=== PATIENT | male | born 1950 | race Caucasian/White ===

== ENCOUNTER 2018-01-29 19:06 | Inpatient (IN) | payer BC, MEDICARE ==
[2018-01-29] MEDS ORDERED: IPRATROPIUM/ALBUTEROL 0.5-2.5 MG/3 ML AMPUL NEB ONE ×2 (19:20→19:49)
[2018-01-29] MEDS ORDERED: PREDNISONE 20 MG TABLET PO ONE (19:20)
--- NOTE | 2018-01-29 19:22 | ER Document Report ---
ED Medical Screen (RME) - General Chief Complaint: Shortness Of Breath Stated Complaint: SHORTNESS OF BREATH Time Seen by Provider: 01/29/18 19:13 Notes: RME DISCLOSURE I have seen this patient as part of a Rapid Medical Evaluation and, if applicable, placed any initially appropriate orders. The patient will be seen and fully evaluated, including a full history and physical exam, by a provider ( in Main ED or Fast Track) when a room becomes available. 67-year-old male PMH liver transplant here with complaints of progressively worsening shortness of breath, new nonproductive cough, and chest pain ongoing for the past few days. The shortness of breath is present at baseline but patient states he has been getting worse over the past few days. He denies any fevers or chills. O2 sats in triage or high 70s low 80s. EXAM Mild end expiratory wheezes with mild decreased aeration Tachycardic TRAVEL OUTSIDE OF THE [place] IN LAST 30 DAYS: No - Related Data Allergies/Adverse Reactions: Penicillins Allergy (Verified 01/29/18 19:08)
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
[2018-01-29] MEDS: MAGNESIUM SULFATE/D5W 1 GM/100 ML RTUPB IV SCH ×2 (20:00→20:53)
[2018-01-29 20:11] LABS: MEAN CORPUSCULAR VOLUME 92 fl (80-97)
[2018-01-29 20:13] LABS: HEMATOCRIT 38.7 % (37.9-51.0); MEAN CORPUSCULAR HEMOGLOBIN 30.8 pg (27.0-33.4); MEAN CORPUSCULAR HGB CONC 33.7 g/dL (32.0-36.0); RED BLOOD COUNT 4.23 10^6/uL (4.35-5.55); RED CELL DISTRIBUTION WIDTH 14.9 % (11.5-14.0); WHITE BLOOD COUNT 10.9 10^3/uL (4.0-10.5)
[2018-01-29 20:22] LABS: VENOUS BLOOD BASE EXCESS 0.8 mmol/L; VENOUS BLOOD HCO3 26.3 mmol/L (20-32); VENOUS BLOOD PCO2 44.9 mmHg (35-63); VENOUS BLOOD PH 7.39 (7.30-7.42)
[2018-01-29 20:43] LABS: TROPONIN I 0.045 ng/mL
--- NOTE | 2018-01-29 20:44 | RADIOLOGY REPORT (SQ) ---
EXAM DESCRIPTION: CHEST SINGLE VIEW COMPLETED DATE/TIME: 01/29/2018 8:14 pm REASON FOR STUDY: SOB, hypoxic; eval edema pneumonia COMPARISON: None. EXAM PARAMETERS: NUMBER OF VIEWS: One view. TECHNIQUE: Single frontal radiographic view of the chest acquired. RADIATION DOSE: NA LIMITATIONS: None. FINDINGS: LUNGS AND PLEURA: Diffuse increased interstitial prominence. Confluent alveolar opacities are present in the right costophrenic angle, possible consolidation. No pneumothorax identified. N o significant effusion. Right lateral pleural calcified plaques. MEDIASTINUM AND HILAR STRUCTURES: Age-appropriate. HEART AND VASCULAR STRUCTURES: Cardiomegaly. Increased vascularity. BONES: No acute findings. HARDWARE: Cardiac pacer. OTHER: No other significant finding. IMPRESSION: Diffuse increased interstitial prominence and increased pulmonary vascularity, probable pulmonary edema. Confluent alveolar opacities are present in the right costophrenic angle, possible focal consolidation. No pneumothorax identified. No significant effusion. Right lateral pleural ca lcified plaques. TECHNICAL DOCUMENTATION: JOB ID: [id number] [id number] 2010 [employer]- All Rights Reserved Reading location - IP/workstation name: [email or web address]
[2018-01-29 20:46] LABS: ABSOLUTE LYMPHOCYTES# (MANUAL) 2.6 10^3/uL (0.5-4.7); ABSOLUTE MONOCYTES # (MANUAL) 0.8 10^3/uL (0.1-1.4); ABSOLUTE NEUTROPHILS# (MANUAL) 7.3 10^3/uL (1.7-8.2); BAND NEUTROPHILS % (MANUAL) 1 % (3-5); BASOPHILS % (MANUAL) 0 % (0-2); EOSINOPHILS % (MANUAL) 2 % (0-6); LYMPHOCYTES % (MANUAL) 16 % (13-45); MONOCYTES % (MANUAL) 7 % (3-13); SEGMENTED NEUTROPHILS % (MAN) 66 % (42-78); TOTAL CELLS COUNTED 100
[2018-01-29 20:49] LABS: ANISOCYTOSIS SLIGHT; PLATELET CLUMPS PRESENT; PLATELET COMMENT ADEQUATE; PLATELET COUNT 230 10^3/uL (150-450); POIKILOCYTOSIS SLIGHT; POLYCHROMASIA SLIGHT; SCHISTOCYTES SLIGHT
[2018-01-29 20:55] LABS: ALANINE AMINOTRANSFERASE 45 U/L (21-72); ALBUMIN 4.3 g/dL (3.5-5.0); ALKALINE PHOSPHATASE 105 U/L (38-126); ANION GAP 12 (5-19); ASPARTATE AMINO TRANSFERASE 28 U/L (17-59); BILIRUBIN,DIRECT 0.4 mg/dL (0.0-0.4); BILIRUBIN,TOTAL 1.1 mg/dL (0.2-1.3); BLOOD UREA NITROGEN 31 mg/dL (7-20); CALCIUM 9.9 mg/dL (8.4-10.2); CARBON DIOXIDE 27 mmol/L (22-30); CHLORIDE 101 mmol/L (98-107); GLUCOSE 339 mg/dL (75-110); TOTAL PROTEIN 7.9 g/dL (6.3-8.2)
[2018-01-29] MEDS ORDERED: FUROSEMIDE INJ/PF 40 MG/4 ML SDV IV ONE (21:11)
[2018-01-29] MEDS ORDERED: LEVOFLOXACIN 750 MG/D5W RTU 750 MG/150 ML RTUPB IV ONE (21:11)
--- NOTE | 2018-01-29 21:53 | EKG REPORT ---
SEVERITY:- ABNORMAL ECG - ATRIAL-SENSED VENTRICULAR-PACED COMPLEXES PROBABLE LEFT ATRIAL ABNORMALITY NONSPECIFIC ST DEPRESSION : Confirmed by: Joann Levin 29-Jan-2018 21:53:02
--- NOTE | 2018-01-29 22:37 | PDOC H&P ---
History of Present Illness Admission Date/PCP: [facility] [address] History of Present Illness: THUAN WANG is a 67 year old male patient with past medical history of congestive heart failure, CAD status post stent placement and pacemaker placement, cirrhosis of the liver status post liver transplant about 17 years ago, aortic regurgitation and obstructive sleep apnea on CPAP at night. Patient reports this that he has been on his baseline state of health up until several days when he started to have shortness of breath which is precipitated by mild exertion and it is getting worse gradually. On arrival at ER he was found to have hypoxemia with O2 saturation of 84% on room air. After he started on supplemental oxygen and 20 mg of IV Lasix he his shortness of breath is relatively subsided. His initial workup shows creatinine of 1.73, BNP of 2400 and his chest x-ray is positive for pulmonary edema. Patient denies chills , fever, chest pain, palpitation or diaphoresis. He does not have any orthopnea or paroxysmal nocturnal dyspnea. No headache, dizziness, blurry vision or any seizure activity. Past Medical History Cardiac Medical History: Reports: Myocardial Infarction Renal/ Medical History: Reports: Chronic Kidney Disease Past Surgical History Past Surgical History: Reports: Other - Liver transplant Social History Smoking Status: Former Smoker Family History Family History: Hypertension Parental Family History Reviewed: Yes Children Family History Reviewed: No Sibling(s) Family History Reviewed.: Yes Medication/Allergy Allergies/Adverse Reactions: Penicillins Allergy (Verified 01/29/18 19:08) Review of Systems Constitutional: PRESENT: as per HPI Eyes: PRESENT: as per HPI Ears: PRESENT: as per HPI Nose, Mouth, and Throat: PRESENT: as per HPI Cardiovascular: PRESENT: as per HPI Gastrointestinal: PRESENT: as per HPI Integumentary: PRESENT: as per HPI Psychiatric: PRESENT: as per HPI Physical Exam Vital Signs: Temp Pulse Resp BP Pulse Ox 98.8 F 18 116/71 98 01/29/18 19:09 01/29/18 20:01 01/29/18 20:01 01/29/18 20:01 General appearance: PRESENT: other - Moderate distress Head exam: PRESENT: atraumatic, normocephalic Eye exam: PRESENT: conjunctiva pink Neck exam: ABSENT: carotid bruit, JVD, lymphadenopathy, thyromegaly Respiratory exam: PRESENT: decreased breath sounds, wheezes Cardiovascular exam: PRESENT: diastolic murmur - 3/6 diastolic early murmur Results Laboratory Results: 01/29/18 19:51 01/29/18 19:51 01/29/18 01/29/18 01/29/18 19:51 19:51 20:08 WBC 10.9 H RBC 4.23 L Hgb 13.0 L Hct 38.7 MCV 92 MCH 30.8 MCHC 33.7 RDW 14.9 H Plt Count 230 Seg Neutrophils % Not Reportable Lymphocytes % Not Reportable Monocytes % Not Reportable Eosinophils % Not Reportable Basophils % Not Reportable Absolute Neutrophils Not Reportable Absolute Lymphocytes Not Reportable Absolute Monocytes Not Reportable Absolute Eosinophils Not Reportable Absolute Basophils Not Reportable VBG pH 7.39 VBG pCO2 44.9 VBG HCO3 26.3 VBG Base Excess 0.8 Sodium 140.0 Potassium 5.0 Chloride 101 Carbon Dioxide 27 Anion Gap 12 BUN 31 H Creatinine 1.73 H Est GFR ( Amer) 48 L Est GFR (Non-Af Amer) 39 L Glucose 339 H Calcium 9.9 Total Bilirubin 1.1 AST 28 ALT 45 Alkaline Phosphatase 105 Total Protein 7.9 Albumin 4.3 01/29/18 19:51 Troponin I 0.045 NT-Pro-B Natriuret Pep 2420 H Impressions: Chest X-Ray 01/29/18 19:19 IMPRESSION: Diffuse increased interstitial prominence and increased pulmonary vascularity, probable pulmonary edema. Confluent alveolar opacities are present in the right costophrenic angle, possible focal consolidation. No pneumothorax identified. No significant effusion. Right lateral pleural calcified plaques. Assessment & Plan - Diagnosis (1) Acute exacerbation of congestive heart failure Qualifiers: Heart failure type: systolic Qualified Code(s): I50.23 - Acute on chronic systolic (congestive) heart failure Is this a current diagnosis for this admission?: Yes Plan: Patient will be admitted to telemetry with inpatient status He is started on Lasix 40 mg IV twice a day, lisinopril 2.5 mg p.o. daily and carvedilol 6.5 mg twice a day. Bedrest, continuous cardiac rehab nurse, daily weight and strict input output. Echo in the morning (2) Dyspnea Qualifiers: Dyspnea type: dyspnea on exertion Qualified Code(s): R06.09 - Other forms of dyspnea Is this a current diagnosis for this admission?: Yes Plan: Supplemental oxygen (3) Coronary artery disease Qualifiers: Coronary Disease-Associated Artery/Lesion type: [place] artery [place] vs. transplanted heart: [place] heart Associated angina: without angina Qualified Code(s): I25.10 - Atherosclerotic heart disease of [place] coronary artery without angina pectoris Is this a current diagnosis for this admission?: Yes Plan: Home medication - Time Time Spent: 30 to 50 Minutes Within: within 72 hours - Inpatient Certification Medical Necessity: Need Close Monitoring Due to Risk of Patient Decompensation
[2018-01-30] MEDS ORDERED: LEVALBUTEROL HCL NEB 0.63 MG/3 ML AMPUL NEB PRN (01:34)
[2018-01-30] MEDS: HEPARIN SOD (PORCINE) 5,000 UNIT/ML 1 ML SYRINGE SUBCUT SCH ×3 (05:44→22:42)
[2018-01-30 09:06] LABS: ALANINE AMINOTRANSFERASE 44 U/L (21-72); ALBUMIN 4.2 g/dL (3.5-5.0); ALKALINE PHOSPHATASE 102 U/L (38-126); ANION GAP 15 (5-19); ASPARTATE AMINO TRANSFERASE 22 U/L (17-59); BILIRUBIN,DIRECT 0.4 mg/dL (0.0-0.4); BILIRUBIN,TOTAL 1.1 mg/dL (0.2-1.3); BLOOD UREA NITROGEN 31 mg/dL (7-20); CALCIUM 9.4 mg/dL (8.4-10.2); CARBON DIOXIDE 24 mmol/L (22-30); CHLORIDE 96 mmol/L (98-107); POTASSIUM 5.4 mmol/L (3.6-5.0); SODIUM 135.2 mmol/L (137-145); TOTAL PROTEIN 7.6 g/dL (6.3-8.2)
[2018-01-30 09:18] LABS: GLUCOSE 497 mg/dL (75-110)
[2018-01-30] MEDS ORDERED: PREDNISONE 1 MG TABLET PO PRN (09:51)
[2018-01-30] MEDS ORDERED: DEXTROSE 50%-WATER 25 GM/50 ML DISP.SYRIN IV PRN ×2 (09:54)
[2018-01-30] MEDS ORDERED: GLUCAGON,HUMAN RECOMB 1 MG INJ IM PRN (09:54)
[2018-01-30] MEDS ORDERED: DEXTROSE 40% GEL 15 GM TUBE PO PRN ×2 (09:54)
[2018-01-30] MEDS ORDERED: LEVOTHYROXINE SODIUM 0.1 MG TABLET PO ONE (10:30)
[2018-01-30] MEDS: ASPIRIN 325 MG TABLET PO SCH (10:39)
[2018-01-30] MEDS: OMEGA-3 ACID ETHYL ESTERS 1 GM CAPSULE PO SCH ×2 (10:42→17:45)
[2018-01-30] MEDS: PREDNISONE 5 MG TABLET PO SCH (10:42)
[2018-01-30] MEDS: MULTIVITAMIN TABLET PO SCH (10:44)
[2018-01-30] MEDS: FAMOTIDINE 20 MG TABLET PO SCH ×2 (10:44→17:45)
[2018-01-30] MEDS: FUROSEMIDE INJ/PF 40 MG/4 ML SDV IV SCH ×2 (10:56→22:40)
[2018-01-30] MEDS ORDERED: INSULIN GLARGINE,HUM.REC.ANLOG 1,000 UNIT/10 ML UNIT SUBCUT ONE (11:00)
--- NOTE | 2018-01-30 11:01 | PDOC PROGRESS REPORT ---
Subjective Progress Note for:: 01/30/18 Subjective:: THUAN WANG is a 67 year old male patient with past medical history of congestive heart failure, CAD status post stent placement and pacemaker placement, cirrhosis of the liver status post liver transplant about 17 years ago, aortic regurgitation and obstructive sleep apnea on CPAP at night. Patient reports this that he has been on his baseline state of health up until several days when he started to have shortness of breath which is precipitated by mild exertion and it is getting worse gradually. On arrival at ER he was found to have hypoxemia with O2 saturation of 84% on room air. After he started on supplemental oxygen and 20 mg of IV Lasix he his shortness of breath is relatively subsided. His initial workup shows creatinine of 1.73, BNP of 2400 and his chest x-ray is positive for pulmonary edema. Patient denies chills , fever, chest pain, palpitation or diaphoresis. He does not have any orthopnea or paroxysmal nocturnal dyspnea. /6 He feels much better today, but gets short of breath with talking. Reason For Visit: CHF EXACERBATION Physical Exam Vital Signs: Temp Pulse Resp BP Pulse Ox 97.5 F 72 20 111/59 L 96 01/30/18 07:46 01/30/18 07:46 01/30/18 07:46 01/30/18 07:46 01/30/18 07:46 Intake & Output 01/29/18 01/30/18 01/31/18 06:59 06:59 06:59 Weight 106.3 kg General appearance: PRESENT: no acute distress, obese Head exam: PRESENT: atraumatic, normocephalic Eye exam: PRESENT: EOMI, PERRLA Neck exam: ABSENT: carotid bruit, JVD, lymphadenopathy, thyromegaly Respiratory exam: PRESENT: crackles - bibasilar, unlabored. ABSENT: accessory muscle use Cardiovascular exam: PRESENT: RRR. ABSENT: diastolic murmur, rubs, systolic murmur GI/Abdominal exam: PRESENT: normal bowel sounds, soft. ABSENT: distended, guarding, mass, organolmegaly, rebound, tenderness Musculoskeletal exam: PRESENT: ambulatory Neurological exam: PRESENT: alert, awake, oriented to person, oriented to place , oriented to time, oriented to situation, CN II-XII grossly intact. ABSENT: motor sensory deficit Psychiatric exam: PRESENT: appropriate affect, normal mood. ABSENT: homicidal ideation, suicidal ideation Skin exam: PRESENT: dry, intact, warm. ABSENT: cyanosis, rash Results Laboratory Results: 01/30/18 08:12 01/30/18 08:12 Sodium 135.2 L Potassium 5.4 H Chloride 96 L Carbon Dioxide 24 Anion Gap 15 BUN 31 H Creatinine 1.59 H Est GFR ( Amer) 53 L Est GFR (Non-Af Amer) 44 L Glucose 497 H* Calcium 9.4 Magnesium 2.0 Total Bilirubin 1.1 AST 22 ALT 44 Alkaline Phosphatase 102 Total Protein 7.6 Albumin 4.2 Impressions: Chest X-Ray 01/29/18 19:19 IMPRESSION: Diffuse increased interstitial prominence and increased pulmonary vascularity, probable pulmonary edema. Confluent alveolar opacities are present in the right costophrenic angle, possible focal consolidation. No pneumothorax identified. No significant effusion. Right lateral pleural calcified plaques. Assessment & Plan - Diagnosis (1) Acute exacerbation of congestive heart failure Qualifiers: Heart failure type: unspecified Qualified Code(s): I50.9 - Heart failure, unspecified Is this a current diagnosis for this admission?: Yes Plan: He says that he has had CHF in the past and has been on furosemide, but since the liver transplant, he hasn't needed any. Follow up echo to determine whether is systolic or diastolic, or both. (2) Diabetes mellitus Qualifiers: Diabetes mellitus type: type 2 Diabetes mellitus intermediate teacher insulin use: with care home use Diabetes mellitus complication status: with kidney complications Diabetes mellitus complication detail: with chronic kidney disease Chronic kidney disease stage: stage 3 (moderate) Qualified Code(s): E11.22 - Type 2 diabetes mellitus with diabetic chronic kidney disease; N18.3 - Chronic kidney disease, stage 3 (moderate); N18.3 - Chronic kidney disease, stage 3 (moderate); Z79.4 - intermediate teacher (current) use of insulin; Z79.4 - intermediate teacher (current) use of insulin; Z79.4 - skilled nursing (current) use of insulin; Z79.4 - skilled nursing (current) use of insulin Is this a current diagnosis for this admission?: Yes Plan: Uncontrolled. Resume Lantus + sliding scale. (3) Renal failure (ARF), acute on chronic Qualifiers: Acute renal failure type: unspecified Chronic kidney disease stage: stage 3 (moderate) Qualified Code(s): N17.9 - Acute kidney failure, unspecified; N18.3 - Chronic kidney disease, stage 3 (moderate); N18.3 - Chronic kidney disease, stage 3 (moderate) Is this a current diagnosis for this admission?: Yes Plan: Likely d/t intravascular volume depletion/effective circulating. (4) Coronary artery disease Qualifiers: Coronary Disease-Associated Artery/Lesion type: [place] artery [place] vs. transplanted heart: [place] heart Associated angina: without angina Qualified Code(s): I25.10 - Atherosclerotic heart disease of [place] coronary artery without angina pectoris Is this a current diagnosis for this admission?: Yes (5) Liver transplant recipient Is this a current diagnosis for this admission?: Yes Plan: Stable. Continue Prograf and prednisone. - Time Time Spent with patient: 25-34 minutes Medications reviewed and adjusted accordingly: Yes Anticipated discharge: Home Within: within 24 hours - Inpatient Certification Based on my medical assessment, after consideration of the patient's comorbidities, presenting symptoms, or acuity I expect that the services needed warrant INPATIENT care.: Yes I certify that my determination is in accordance with my understanding of Medicare's requirements for reasonable and necessary INPATIENT services [42 CFR 412.3e].: Yes Medical Necessity: Need Close Monitoring Due to Risk of Patient Decompensation
[2018-01-30] MEDS: CARVEDILOL 6.25 MG TABLET PO SCH ×2 (11:02→22:40)
[2018-01-30] MEDS: LISINOPRIL 5 MG TABLET PO SCH ×2 (11:02→22:43)
[2018-01-30] MEDS: TACROLIMUS ANHYDROUS 1 MG CAPSULE PO SCH ×2 (11:02→20:32)
[2018-01-30] MEDS ORDERED: GABAPENTIN 300 MG CAPSULE PO PRN (11:06)
[2018-01-30] MEDS: INSULIN LISPRO 100 UNIT/ML 3 ML VIAL SUBCUT PRN ×3 (11:50→22:42)
[2018-01-30] MEDS: CALCIUM CARBONATE 250 MG/VITAMIN D3 125 UNIT TABLET PO SCH ×2 (14:14→17:45)
--- NOTE | 2018-01-30 18:56 | XCELERA REPORT ---
[address] [address] Transthoracic Echocardiogram Report Name: THUAN WANG Age: 67 yrs Gender: Male : 1950 Patient Status: Inpatient Patient Location: [address] [place] [address] Study Date: 01/30/2018 09:31 AM Height: 71 in Weight: 234 lb BSA: 2.3 m2 Procedure: A complete two-dimensional transthoracic echocardiogram was performed (2D, M-mode, spectral and color flow Doppler). The study was technically difficult with many images being suboptimal in quality. Reason For Study: CHF Ordering Physician: QASIM LATHAM Performed By: Pa Villanueva Interpretation Summary The left ventricular ejection fraction is normal. There is mild concentric left ventricular hypertrophy. The left ventricle is grossly normal size. Doppler measurements suggest pseudonormalized left ventricular relaxation, which is associated with grade II/IV or mild to moderate diastolic dysfunction Wall motion cannot be accurately commented on, but no definite regional wall motion abnormalities noted. The right ventricle is mildly dilated. There is normal right ventricular wall thickness. Borderline right atrial enlargement. The left atrium is mildly dilated. There is a trace to mild amount of mitral regurgitation There is no mitral valve stenosis. There is moderate aortic stenosis There is a peak gradient of 50, mean 27 mm of Hg. There is a mild amount of aortic regurgitation There is a trace or physiologic amount of tricuspid regurgitation Tricuspid regurgitation jet envelope not well defined to measure RV systolic pressure accurately. There is no tricuspid stenosis. The aortic root is not well visualized but is probably normal size. The inferior vena cava was not well visualized There is no pericardial effusion. MMode/2D Measurements & Calculations RVDd: 3.1 cm LVIDd: 6.3 cmFS: 32.1 % Ao root diam: 3.0 cm IVSd: 1.3 cm LVIDs: 4.3 cmEDV(Teich): 202.2 ml LVPWd: 1.3 cmESV(Teich): 82.5 ml Ao root area: 7.3 cm2 EF(Teich): 59.2 % LA dimension: 4.2 cm LVOT diam: 2.0 cm LVOT area: 3.2 cm2 Doppler Measurements & Calculations MV E max josh: MV P1/2t max josh: Ao V2 max: AI max josh: 124.4 cm/sec 125.9 cm/sec 357.0 cm/sec 310.8 cm/sec MV A max josh: MV P1/2t: 74.1 msec Ao max PG: AI max P.3 cm/sec MVA(P1/2t): 3.0 cm2 51.0 mmHg 38.6 mmHg MV E/A: 1.3 MV dec slope: Ao V2 mean: AI dec slope: 497.5 cm/sec2 245.0 cm/sec 144.2 cm/sec2 Ao mean PG: AI P1/2t: 27.1 mmHg 631.5 msec Ao V2 VTI: 79.2 cm MERARI(I,D): 1.00 cm2 MERARI(V,D): 0.91 cm2 LV V1 max PG: SV(LVOT): 78.9 ml PA V2 max: TR max josh: 4.1 mmHg 122.4 cm/sec 209.4 cm/sec LV V1 mean PG: PA max PG: TR max P.2 mmHg 6.0 mmHg 17.5 mmHg LV V1 max: 101.5 cm/sec LV V1 mean: 69.5 cm/sec LV V1 VTI: 24.7 cm Left Ventricle The left ventricle is grossly normal size. There is mild concentric left ventricular hypertrophy. The left ventricular ejection fraction is normal. Doppler measurements suggest pseudonormalized left ventricular relaxation, which is associated with grade II/IV or mild to moderate diastolic dysfunction. Wall motion cannot be accurately commented on, but no definite regional wall motion abnormalities noted. Right Ventricle The right ventricle is mildly dilated. There is normal right ventricular wall thickness. The right ventricular systolic function is normal. Atria Borderline right atrial enlargement. The left atrium is mildly dilated. Interarterial septum not well visualized and not well dopplered. Cannot comment on ASD/PFO presence. Mitral Valve The mitral valve leaflets are sclerotic, but show no functional abnormalities. There is no mitral valve stenosis. There is a trace to mild amount of mitral regurgitation. Aortic Valve The aortic valve is moderately calcified. There is moderate aortic stenosis. There is a peak gradient of 50, mean 27 mm of Hg. There is a mild amount of aortic regurgitation. Tricuspid Valve The tricuspid valve is not well visualized, but is grossly normal. There is no tricuspid stenosis. There is a trace or physiologic amount of tricuspid regurgitation. Tricuspid regurgitation jet envelope not well defined to measure RV systolic pressure accurately. Pulmonic Valve The pulmonic valve is not well visualized. Great Vessels The aortic root is not well visualized but is probably normal size. The inferior vena cava was not well visualized. Effusions There is no pericardial effusion. : QASIM LATHAM > Joann Levin
[2018-01-30] MEDS ORDERED: MONTELUKAST SODIUM 10 MG TABLET PO SCH (22:00)
[2018-01-30] MEDS ORDERED: (PENDING PHARMACY ID) (Gabapentin [Neurontin] 1,800 MG) PO SCH (22:00)
[2018-01-30] MEDS ORDERED: INSULIN GLARGINE,HUM.REC.ANLOG 300 UNIT/3 ML INSULN.PEN SUBCUT SCH (22:00)
[2018-01-30] MEDS ORDERED: PSYLLIUM SEED-SF 5.85 GM PACKET PO SCH (22:00)
[2018-01-30] MEDS ORDERED: GABAPENTIN 300 MG CAPSULE PO SCH (22:00)
[2018-01-30] MEDS ORDERED: SIMVASTATIN 40 MG TABLET PO SCH (22:00)
[2018-01-31] MEDS: HEPARIN SOD (PORCINE) 5,000 UNIT/ML 1 ML SYRINGE SUBCUT SCH (05:20)
[2018-01-31] MEDS ORDERED: LEVOTHYROXINE SODIUM 0.1 MG TABLET PO SCH (06:00)
[2018-01-31 07:10] LABS: ANION GAP 12 (5-19); BLOOD UREA NITROGEN 45 mg/dL (7-20); CALCIUM 10.2 mg/dL (8.4-10.2); CARBON DIOXIDE 29 mmol/L (22-30); CHLORIDE 97 mmol/L (98-107); GLUCOSE 180 mg/dL (75-110); POTASSIUM 4.7 mmol/L (3.6-5.0); SODIUM 137.7 mmol/L (137-145)
[2018-01-31] MEDS ORDERED: INSULIN LISPRO 100 UNIT/ML 3 ML VIAL SUBCUT SCH (08:00)
[2018-01-31] MEDS: CALCIUM CARBONATE 250 MG/VITAMIN D3 125 UNIT TABLET PO SCH (09:07)
[2018-01-31] MEDS: INSULIN LISPRO 100 UNIT/ML 3 ML VIAL SUBCUT PRN (09:09)
[2018-01-31] MEDS: OMEGA-3 ACID ETHYL ESTERS 1 GM CAPSULE PO SCH (09:14)
[2018-01-31] MEDS: ASPIRIN 325 MG TABLET PO SCH (09:14)
[2018-01-31] MEDS: FAMOTIDINE 20 MG TABLET PO SCH (09:14)
[2018-01-31] MEDS: PREDNISONE 5 MG TABLET PO SCH (09:14)
[2018-01-31] MEDS: MULTIVITAMIN TABLET PO SCH (09:14)
[2018-01-31] MEDS: TACROLIMUS ANHYDROUS 1 MG CAPSULE PO SCH (09:15)
[2018-01-31] MEDS: CARVEDILOL 6.25 MG TABLET PO SCH (09:18)
[2018-01-31] MEDS: LISINOPRIL 5 MG TABLET PO SCH (09:18)
--- NOTE | 2018-01-31 09:19 | RADIOLOGY REPORT (SQ) ---
EXAM DESCRIPTION: CHEST 2 VIEWS COMPLETED DATE/TIME: 01/31/2018 8:46 am REASON FOR STUDY: CHF COMPARISON: 01/29/2018 EXAM PARAMETERS: NUMBER OF VIEWS: two views TECHNIQUE: Digital Frontal and Lateral radiographic views of the chest acquired. RADIATION DOSE: NA LIMITATIONS: none FINDINGS: LUNGS AND PLEURA: Diffuse interstitial pattern more conspicuous in the lower lobes. Right pleural calcifications. No large effusions. No pneumothorax. MEDIASTINUM AND HILAR STRUCTURES: Stable. HEART AND VASCULAR STRUCTURES: Stable heart size. BONES: No acute findings. HARDWARE: Unchanged position of left-sided pacemaker. OTHER: No other significant finding. IMPRESSION: Pulmonary edema on a background of COPD. No significant change. TECHNICAL DOCUMENTATION: JOB ID: [id number] [employer]- All Rights Reserved Reading location - IP/workstation name: [email or web address]
--- NOTE | 2018-01-31 11:14 | PDOC DISCHARGE SUMMARY ---
General - Admit/Disc Date/PCP Admission Date/Primary Care Provider: 01/29/18 22:[address] Discharge Date: 01/31/18 - Discharge Diagnosis (1) Acute exacerbation of congestive heart failure Is this a current diagnosis for this admission?: Yes Summary: Diastolic dysfunction based on echocardiogram (2) Diabetes mellitus Is this a current diagnosis for this admission?: Yes (3) Renal failure (ARF), acute on chronic Is this a current diagnosis for this admission?: Yes (4) Coronary artery disease Is this a current diagnosis for this admission?: Yes (5) Liver transplant recipient Is this a current diagnosis for this admission?: Yes - Additional Information Discharge Diet: Cardiac, Diabetic Discharge Activity: Activity As Tolerated, Balance Activity w/Rest, Weigh Daily Prescriptions: Furosemide 20 mg PO DAILY #30 tablet Home Medications: Aspirin [Aspirin 325 mg Tablet] 325 mg PO DAILY 01/30/18 Calcium Carbonate/Vitamin D3 [Os-Milo 250 mg with Vitamin D 125 Units] 1 tab PO MEALS 01/30/18 Dulaglutide [Trulicity] 1.5 mg SQ ANDERSON@1000 01/30/18 Famotidine [Pepcid 20 mg Tablet] 20 mg PO BID 01/30/18 Gabapentin [Neurontin] 1,800 mg PO QHS 01/30/18 Gabapentin [Neurontin] 600 mg PO QAMP PRN 01/30/18 Glimepiride [Amaryl 4 mg Tablet] 4 mg PO QAM 01/30/18 Insulin Glargine,Hum.rec.anlog [Lantus Solostar] 65 unit SQ QHS 01/30/18 Levothyroxine Sodium [Synthroid 0.1 mg Tablet] 0.1 mg PO Q6AM 01/30/18 Losartan Potassium [Cozaar 50 mg Tablet] 50 mg PO DAILY 01/30/18 Montelukast Sodium [Singulair 10 mg Tablet] 10 mg PO QHS 01/30/18 Multivitamin [Multiple Vitamins] 1 each PO DAILY 01/30/18 Sagola-3 Acid Ethyl Esters [Lovaza 1 gm Capsule] 1 gm PO BID 01/30/18 Prednisone [Deltasone 1 mg Tablet] 2 mg PO DAILYP PRN 01/30/18 Prednisone [Deltasone 5 mg Tablet] 5 mg PO DAILY 01/30/18 Psyllium Husk/Aspartame [Metamucil Fiber Singles Packet] 3.4 gm PO QHS 01/30/18 Simvastatin [Zocor 40 mg Tablet] 40 mg PO QHS 01/30/18 Tacrolimus Anhydrous [Prograf 1 mg Capsule] 1 mg PO Q12 01/30/18 Furosemide 20 mg PO DAILY #30 tablet 01/31/18 History of Present Illness History of Present Illness: THUAN WANG is a 67 year old male patient with past medical history of congestive heart failure, CAD status post stent placement and pacemaker placement, cirrhosis of the liver status post liver transplant about 17 years ago, aortic regurgitation and obstructive sleep apnea on CPAP at night. Patient reports this that he has been on his baseline state of health up until several days when he started to have shortness of breath which is precipitated by mild exertion and it is getting worse gradually. On arrival at ER he was found to have hypoxemia with O2 saturation of 84% on room air. After he started on supplemental oxygen and 20 mg of IV Lasix he his shortness of breath is relatively subsided. His initial workup shows creatinine of 1.73, BNP of 2400 and his chest x-ray is positive for pulmonary edema. Patient denies chills , fever, chest pain, palpitation or diaphoresis. He does not have any orthopnea or paroxysmal nocturnal dyspnea. Hospital Course Hospital Course: He was admitted with a presumptive diagnosis of CHF. within 24 hours his symptoms resolved. Echo showed normal LVEF and mild to moderate diastolic dysfunction. Repeat CXR prior to discharge showed continued pulm edema despite his marked improvement in symptoms following initiation of furosemide. His hospital stay was uneventful. Physical Exam Vital Signs: Temp Pulse Resp BP Pulse Ox 97.4 F 62 24 H 89/53 L 96 01/31/18 08:04 01/31/18 08:04 01/31/18 08:04 01/31/18 08:04 01/31/18 08:04 Intake & Output 01/30/18 01/31/18 02/01/18 06:59 06:59 06:59 Intake Total 2030 Output Total 3240 Balance -1210 Weight 106.3 kg 106.4 kg General appearance: PRESENT: no acute distress, cooperative, obese Head exam: PRESENT: atraumatic, normocephalic Neck exam: ABSENT: carotid bruit, JVD, lymphadenopathy, thyromegaly Respiratory exam: PRESENT: clear to auscultation deysi. ABSENT: rales, rhonchi, wheezes Cardiovascular exam: PRESENT: RRR. ABSENT: diastolic murmur, rubs, systolic murmur GI/Abdominal exam: PRESENT: normal bowel sounds, soft. ABSENT: distended, guarding, mass, organolmegaly, rebound, tenderness Neurological exam: PRESENT: alert, awake, oriented to person, oriented to place , oriented to time, oriented to situation, CN II-XII grossly intact. ABSENT: motor sensory deficit Skin exam: PRESENT: dry, intact, warm. ABSENT: cyanosis, rash Results Laboratory Results: 01/31/18 06:10 01/30/18 01/31/18 11:16 06:10 Sodium 137.7 Potassium 5.2 H 4.7 Chloride 97 L Carbon Dioxide 29 Anion Gap 12 BUN 45 H Creatinine 1.87 H Est GFR ( Amer) 44 L Est GFR (Non-Af Amer) 36 L Glucose 180 H Calcium 10.2 Impressions: Chest X-Ray 01/31/18 07:00 IMPRESSION: Pulmonary edema on a background of COPD. No significant change. Qualifiers - * [facility]INT BEING DISCHARGED WITH ANY OF THE FOLLOWING DIAGNOSIS?: Heart Failure HF Pt being discharged on ACEI for LVEF less than 40%?: No Reason(s) for not prescribing ACEI:: Not indicated - EF > 40% HF Pt being discharged on ARBS for LVEF less than 40%?: No Reason(s) for not prescribing ARBS:: Not indicated HF Pt with Afib discharged with Warfarin?: No Reason(s) for not prescribing Warfarin:: Not indicated HF Pt discharged on evidence-based Beta Rajni:: Yes
[2018-01-31 11:36] VITALS: BP 139/72
[2018-02-01] MEDS ORDERED: (PENDING PHARMACY ID) (Dulaglutide [Trulicity] 1.5 MG) SQ SCH (10:00)
== END 2018-01-31 13:19 | disposition home or self-care (01) | DRG 291 ==
LOC: ER 19:06 → EH 22:14 → 4S 01-30 00:07
PROVIDERS: ADMIT Internal Medicine; ATTEND Internal Medicine
PROC: 3E0F73Z Introduction of Anti-inflammatory into Respiratory Tract, Via Natural or Artificial Opening (ICD-10-PCS; principal; 2018-01-30)
DX: I13.0 Hypertensive heart and chronic kidney disease with heart failure and stage 1 through stage 4 chronic kidney disease, or unspecified chronic kidney disease (principal); I50.31 Acute diastolic (congestive) heart failure; N17.9 Acute kidney failure, unspecified; Z94.4 Liver transplant status; I25.10 Atherosclerotic heart disease of native coronary artery without angina pectoris; E11.22 Type 2 diabetes mellitus with diabetic chronic kidney disease; N18.9 Chronic kidney disease, unspecified; I35.1 Nonrheumatic aortic (valve) insufficiency; G47.33 Obstructive sleep apnea (adult) (pediatric); R09.02 Hypoxemia; I48.91 Unspecified atrial fibrillation; J44.9 Chronic obstructive pulmonary disease, unspecified; I25.2 Old myocardial infarction; Z79.4 Long term (current) use of insulin; Z79.899 Other long term (current) drug therapy; Z95.5 Presence of coronary angioplasty implant and graft; Z95.0 Presence of cardiac pacemaker; Z87.891 Personal history of nicotine dependence; Z95.810 Presence of automatic (implantable) cardiac defibrillator; Z88.0 Allergy status to penicillin; Z82.49 Family history of ischemic heart disease and other diseases of the circulatory system
CPT/HCPCS: 36415; 71045; 71046; 80048; 80053; 82803; 82962; 83735; 83880; 84132; 84484; 85025; 87040; 93005; 93010; 93306; 94640; 96365; 96366; 96375; 99285; J1644; J1815; J1940; J1956; J3475; J3490; J7507; J7512; J7620